=== PATIENT | male | born 1945 | race African-American/Black ===

== ENCOUNTER 2016-12-16 17:00 | Inpatient (IN) ==
[2016-12-16] MEDS ORDERED: BISACODYL 5 MG TABLET PO PRN (17:38)
[2016-12-16] MEDS ORDERED: ONDANSETRON 4 MG/2 ML VIAL IV PRN (17:38)
[2016-12-16] MEDS ORDERED: ACETAMINOPHEN 325 MG TABLET PO PRN (17:38)
--- NOTE | 2016-12-16 17:38 | Emergency Department Note ---
INoemy Sierra, am scribing for, and in the presence of, Mike Nelson MD 17:27. Omar Belle Robert M, MD, personally performed the services described in this documentation, ascribed by Emma Salguero in my presence, and it is both accurate and complete [id number] . Arrival - Arrival Chief Complaint: Weakness Stated Complaint: weakness ED Nursing Triage Note: Transfer from [place] ER for further evaluation of generalized weakness onset . Also c/o edema to bilateral legs and left hand. Reports unable to stand since yesterday. Denies pain. Mode of Arrival: Stretcher Limitations: No Limitations Source: Patient, Family - History of Present Illness HPI Narrative: Pt is a 71 y/o male that was transferred from [place] ED for further evaluation of bilateral hand and leg swelling that began 5 days ago. Pt denies taking fluid pills or pain. He states he had similar sxs about 6 months ago. states she had to put him in a wheelchair 2 days ago due to swelling so bad. 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 Pt's PCP is Dr. Antonio. No other complaints/pain in ED. Onset (ago): day(s) Consistency: constant Severity: mild, moderate Severity scale (1-10): 3 Quality: other Allergies/Adverse Reactions: Allergies Allergy/AdvReac Type Severity Reaction Status Date / Time No Known Allergies Allergy Unverified 12/16/16 17:05 Home Medications: Home Medications Medication Instructions Recorded Confirmed Type Losartan/Hydrochlorothiazide 1 each PO DAILY 08/31/16 10/11/16 History [Hyzaar 100-25 Tablet] Metoprolol Succinate Xl [Toprol Xl] 100 mg PO DAILY 08/31/16 10/11/16 History Allopurinol 100 mg PO BID 09/09/16 10/11/16 History hydrALAZINE TAB [Apresoline Tab] 50 mg PO TID 09/09/16 10/11/16 History Glyburide/Metformin HCl 1.5 each PO BID 09/23/16 10/11/16 History [Glyburide-Metformin 5-500 mg] amLODIPine [Norvasc] 10 mg PO DAILY 09/30/16 10/11/16 History Pantoprazole Tab [Protonix Tab] 40 mg PO BID 10/08/16 10/11/16 History HYDROcodone/ACETAMIN 7.5-325 1 tablet PO Q4H PRN #0 tablet 10/11/16 10/11/16 Rx [[place] 7.5-325] HYDROcodone/ACETAMIN 7.5-325 2 tablet PO Q4H PRN #0 tablet 10/11/16 10/11/16 Rx [[place] 7.5-325] Insulin Lispro [HumaLOG] See Protocol SUBCUT ACHS ml 10/11/16 10/11/16 Rx Acetaminophen Tab [Tylenol Tab] 650 mg PO Q4H PRN #0 tablet 10/23/16 Rx Alum/Mag/Simeth Max Str Liquid 30 ml PO Q6H PRN #0 udcup 10/23/16 Rx [Mylanta Max Strength Liquid] Magnesium Hydroxide Susp [Milk of 30 ml PO BID PRN #0 udcup 10/23/16 Rx Magnesia] Review of System - Review of System 12 point system: reviewed and no additional remarkable complaints except as stated - Review of System Constitutional: Absent: fever Head/Ears/Nose/Throat: Absent: earache Respiratory: Absent: cough Cardiovascular: Absent: chest pain Gastrointestinal: Absent: abdominal pain, nausea, vomiting Musculoskeletal: Present: other (bilateral leg and hand swelling). Absent: arm pain, back pain, leg pain, neck pain Skin: Absent: rash Neurological: Absent: headache, numbness, confusion Psychiatric: Absent: anxiety Medical,Surgical,& Family Hx - Medical History Cardio: History of: CAD (previous stent), Hypertension No history of: Aneurysm, Cardiac Dysrhythmia, Cerebrovascular Disease, Congenital Heart Disease, CHF, [place], Pacemaker, PVD, Valvular Heart Disease Neurology: No history of: Brain Aneurysm, Cerebral Hemorrhage, Cerebrovascular Accident , Cerebral Palsy, Dementia, Migraine, Multiple Sclerosis, Parkinson's Disease, Peripheral Neuropathy, Seizures, TIA, Vertigo, Neurologocal Cancer HEENT: History of: Eye Problem (READING GLASSES), Dental Problems (PARTIAL UPPER ) No history of: Ear Problem, Glaucoma, Oral Cancer, HEENT Problems Endocrine: History of: Diabetes Mellitus (NIDDM), Dyslipidemia No history of: Adrenal Disease, Diabetes Mellitus (IDDM), Thyroid Disorder, Endocrine Cancer, Endocrine Problems Rheumatology: History of;: Gout, Rheumatoid Arthritis No history of;: Fibromyalgia, Myasthenia Gravis Gastrointestinal: History of: GERD, GI Problems (gastric ulcer) No history of: Bowel Obstruction, Clostridium Difficile, Crohn's Disease, Diverticulitis/ Diverticulosis, Esophageal Varices, Gastrointestinal Bleed, Hemorrhoids, Hematochezia, Hepatitis, Liver Problems, Pancreatitis, Polyps, Ulcerative Colitis, Gastrointestinal Cancer Musculoskeletal: History of: Musculoskeletal Problems (LEFT HIP OA) No history of: Amputation, Back/Neck Problems, Degenerative Disk Disease, Osteoporosis, Musculoskeletal Cancer Other: History of: Miscellaneous Medical Problems (gout, polyclonal gammopathy stable at present.) - Surgical History Cardiac Surgeries: Sugical HX of: Cardiac Catheterization Patient Denies: Femoral-Popliteal Bypass Graft, Cardiac Surgery, Carotid Endarterectomy, Internal Defibrillator, Vascular Access Devices Neurologic Surgeries: Patient denies: Brain Aneurysm, Cerebral Hemorrhage, Neurologic Surgery HEENT Surgeries: Patient denies: Carotid Endarterectomy, Eye Surgery, Tonsilectomy & Adenoidectomy Abdominal Surgeries: Surgical HX of: EGD Patient denies: Abdominal Surgery, Appendectomy, Cholecystectomy, Colonoscopy , Gastric Bypass Surgery, Hernia Repair, Splenectomy Orthopedic Surgeries: Surgical HX of;: Total Hip Replacement (Lt 10/2016) Patient denies;: Implanted Devices, Orthopedic Surgery, Spinal Surgery, Total Knee Replacement - Family History Family History: Reports;: Family Cancer (FATHER), Family Hypertension (MOTHER) - Social History Smoking Status: Never smoker Frequency of Alcohol Use: None Type of Drug Use: None Exam Vital Signs: Vital Signs Temperature 98.2 F 12/16/16 17:00 Pulse Rate 123 H 12/16/16 17:00 Respiratory Rate 20 12/16/16 17:00 Blood Pressure 146/86 12/16/16 17:00 O2 Sat by Pulse Oximetry 96 12/16/16 17:00 - General General appearance: alert, in no apparent distress - Head Head exam: Present: atraumatic, normocephalic - Eye Eye exam: Present: PERRL, EOMI - ENT ENT exam: Present: mucous membranes moist. Absent: mucous membranes dry - Neck Neck exam: Present: full ROM. Absent: tenderness - Chest Chest inspection: Present: symmetric chest wall rise. Absent: tenderness - Respiratory Respiratory exam: Present: normal lung sounds bilaterally. Absent: respiratory distress - Cardiovascular Cardiovascular exam: Present: regular rate, normal rhythm, normal heart sounds - Abdominal Exam Abdominal exam: Present: soft. Absent: tenderness - Extremities Exam Extremities exam: Present: full ROM, other (diffusely edematous of hands and legs) - Back Exam Back exam: Present: full ROM. Absent: tenderness - Neurological Exam Neurological exam: Present: alert, oriented X3, CN II-XII intact, normal gait. Absent: motor sensory deficit - Psychiatric Psychiatric exam: Present: normal affect, normal mood - Skin Skin exam: Present: warm, dry Course - Consultations Consultation #1: Dr. Papito Alfaro will admit to Dr. Antonio. Time: 17:36 Results - Labs Lab Results: I have reviewed the patients labs (labs from [facility] were reviewed.) Disposition Clinical Impression: Weakness, Anasarca, Anemia Case discussed with: patient, patient's family Disposition: Still a Patient Condition: Stable Time of Disposition: 17:38
[2016-12-16] MEDS: DOCUSATE SODIUM 100 MG CAPSULE PO SCH (22:14)
[2016-12-16 23:25] LABS: Apearance,Urine CLEAR (Clear); Bilirubin,Urine Negative (Negative); Blood, Urine Moderate mg/dL (Negative); Glucose,Urine (UA) Negative (Negative); Hyaline Casts,Urine 1 /LPF (0-3); Ketones,Urine Negative (Negative); Mucus,Urine Occasional /LPF (Occasional); Nitrite,Urine Negative (Negative); Protein,Urine 30 MG/DL; RBC,Urine 1 /HPF (0-4); Squamous Epithelial Cell,Urine Occasional /HPF (0-10); Urine Color Yellow (Yellow); Urine Specific Gravity 1.013 (1.001-1.035); WBC,Urine <1 /HPF (0-6)
[2016-12-16] MEDS: cefTRIAXone 1,000 MG in SODIUM CHLORIDE 0.9% 100 ML IV SCH (23:32)
[2016-12-17 06:52] LABS: Calcium 9.8 MG/DL (8.5-10.1); Osmolality,Calculated 283.7 MOS/KG (273-304); Potassium 4.6 MMOL/L (3.5-5.1)
[2016-12-17] MEDS ORDERED: ALUMINUM/MAGNES/SIMETH MAX STR 30 ML UDCUP PO PRN (08:14)
[2016-12-17] MEDS ORDERED: MAGNESIUM HYDROXIDE SUSP 30 ML UDCUP PO PRN (08:14)
[2016-12-17] MEDS: LOSARTAN/HCTZ 50-12.5 MG TABLET PO SCH (09:52)
[2016-12-17] MEDS: glyBURIDE/METFORMIN 5-500 MG TABLET PO SCH ×2 (09:52→17:09)
[2016-12-17] MEDS: PANTOPRAZOLE 40 MG TABLET PO SCH (09:53)
[2016-12-17] MEDS: FUROSEMIDE 40 MG/4 ML VIAL IV SCH ×2 (09:53→15:53)
[2016-12-17] MEDS: METOPROLOL SUCCINATE XL 100 MG TABLET PO SCH (09:53)
[2016-12-17] MEDS: DOCUSATE SODIUM 100 MG CAPSULE PO SCH ×2 (09:53→22:22)
[2016-12-17] MEDS: methylPREDNISolone SOD SUC 40 MG/1 ML VIAL IV SCH ×2 (09:54→17:10)
[2016-12-17] MEDS: INSULIN LISPRO 100 UNIT/ML SUBCUT SCH ×3 (11:44→22:22)
[2016-12-17] MEDS: amLODIPine 10 MG TABLET PO SCH (11:44)
--- NOTE | 2016-12-17 19:44 | Family Practice History&Phys ---
Assessment and Plan (1) severe joint pain Status: Acute Assessment and plan: Patient has severe joint pain of unknown etiology. Unable to ambulate or bear weight at present Current Visit: Yes (2) diffuse joint pain and swelling Status: Acute Assessment and plan: Patient is presently unable to ambulate due to joint pain. He has severe pain in multiple joints bilaterally. Had a similar episode reportedly 6 months ago resolved with time. He doesn't have any localized pain and swelling. Symptoms Came on suddenly. We'll order additional studies Current Visit: Yes (3) coronary artery disease with stent Status: Chronic Assessment and plan: Stable at present Current Visit: No (4) gastroesophageal reflux Status: Chronic Assessment and plan: Stable at present Current Visit: No (5) hyperlipidemia Status: Chronic Assessment and plan: Able to present Current Visit: No (6) hypertension Status: Chronic Assessment and plan: Stable on present medications Current Visit: No (7) type 2 diabetes mellitus Status: Chronic Assessment and plan: Stable on present medications Current Visit: No History of Present Illness Chief complaint: severe joint pain weakness History of present illness: Mr. Nunez is a 71 year old male Pt is a 71 y/o male that was transferred from [place] ED for further evaluation of bilateral hand and leg swelling that began 5 days ago. Pt denies taking fluid pills or pain. He states he had similar sxs about 6 months ago. states she had to put him in a wheelchair 2 days ago due to swelling so bad. 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 Patient is unable to ambulate at time of admission. Complaining of severe joint pain in hips knees and wrists. In view of degree of symptoms it was elected to admit for further evaluation therapy Home Medications Medication Instructions Recorded Confirmed Type Losartan/Hydrochlorothiazide 1 each PO DAILY 08/31/16 12/16/16 History [Hyzaar 100-25 Tablet] Metoprolol Succinate Xl [Toprol Xl] 100 mg PO DAILY 08/31/16 12/16/16 History Allopurinol 100 mg PO BID 09/09/16 12/16/16 History hydrALAZINE TAB [Apresoline Tab] 50 mg PO TID 09/09/16 12/16/16 History Glyburide/Metformin HCl 1.5 each PO BID 09/23/16 12/16/16 History [Glyburide-Metformin 5-500 mg] amLODIPine [Norvasc] 10 mg PO DAILY 09/30/16 12/16/16 History Pantoprazole Tab [Protonix Tab] 40 mg PO BID 10/08/16 12/16/16 History Acetaminophen Tab [Tylenol Tab] 650 mg PO Q4H PRN #0 tablet 10/23/16 12/16/16 Rx Alum/Mag/Simeth Max Str Liquid 30 ml PO Q6H PRN #0 udcup 10/23/16 12/16/16 Rx [Mylanta Max Strength Liquid] Magnesium Hydroxide Susp [Milk of 30 ml PO BID PRN #0 udcup 10/23/16 12/16/16 Rx Magnesia] Allergies Allergy/AdvReac Type Severity Reaction Status Date / Time No Known Allergies Allergy Unverified 12/16/16 17:05 Medical,Surgical,& Family Hx - Medical History Cardio: History of: CAD (previous stent), Hypertension No history of: Aneurysm, Cardiac Dysrhythmia, Cerebrovascular Disease, Congenital Heart Disease, CHF, [place], Pacemaker, PVD, Valvular Heart Disease Neurology: No history of: Brain Aneurysm, Cerebral Hemorrhage, Cerebrovascular Accident , Cerebral Palsy, Dementia, Migraine, Multiple Sclerosis, Parkinson's Disease, Peripheral Neuropathy, Seizures, TIA, Vertigo, Neurologocal Cancer HEENT: History of: Eye Problem (READING GLASSES), Dental Problems (PARTIAL UPPER ) No history of: Ear Problem, Glaucoma, Oral Cancer, HEENT Problems Endocrine: History of: Diabetes Mellitus (NIDDM), Dyslipidemia No history of: Adrenal Disease, Diabetes Mellitus (IDDM), Thyroid Disorder, Endocrine Cancer, Endocrine Problems Rheumatology: History of;: Gout, Rheumatoid Arthritis No history of;: Fibromyalgia, Myasthenia Gravis Gastrointestinal: History of: GERD, GI Problems (gastric ulcer) No history of: Bowel Obstruction, Clostridium Difficile, Crohn's Disease, Diverticulitis/ Diverticulosis, Esophageal Varices, Gastrointestinal Bleed, Hemorrhoids, Hematochezia, Hepatitis, Liver Problems, Pancreatitis, Polyps, Ulcerative Colitis, Gastrointestinal Cancer Musculoskeletal: History of: Musculoskeletal Problems (LEFT HIP OA) No history of: Amputation, Back/Neck Problems, Degenerative Disk Disease, Osteoporosis, Musculoskeletal Cancer Other: History of: Miscellaneous Medical Problems (gout, polyclonal gammopathy stable at present.) - Surgical History Cardiac Surgeries: Sugical HX of: Cardiac Catheterization (stints) Patient Denies: Femoral-Popliteal Bypass Graft, Cardiac Surgery, Carotid Endarterectomy, Internal Defibrillator, Vascular Access Devices Thoracic Surgeries: Patient denies;: Organ Transplant, Lobectomy Neurologic Surgeries: Patient denies: Brain Aneurysm, Cerebral Hemorrhage, Neurologic Surgery HEENT Surgeries: Patient denies: Carotid Endarterectomy, Eye Surgery, Thyroid Surgery, Tonsilectomy & Adenoidectomy Abdominal Surgeries: Surgical HX of: EGD Patient denies: Abdominal Surgery, Appendectomy, Cholecystectomy, Colonoscopy , Gastric Bypass Surgery, Hernia Repair, Splenectomy Reproductive Surgeries: Patient denies;: Genitourinary Surgery Orthopedic Surgeries: Surgical HX of;: Total Hip Replacement (Lt 10/2016) Patient denies;: Implanted Devices, Orthopedic Surgery, Spinal Surgery, Total Knee Replacement - Family History Family History: Reports;: Family Cancer (FATHER), Family Hypertension (MOTHER) - Social History Smoking Status: Never smoker Frequency of Alcohol Use: None Type of Drug Use: None Marital Status: Lives With:: Spouse Functional capacity: independent ambulation Exam - Constitutional Vitals: Period Temp Pulse Resp BP Sys/Charles Pulse Ox Last 24 Hr 96.7 F-101.5 F 104-127 16-22 128-161/65-86 90-127 General appearance: mild distress - Head Head exam: Present: normal inspection - ENT ENT exam: Present: normal exam - Neck Neck exam: Present: normal inspection - Respiratory Respiratory exam: Present: clear to auscultation bilaterally - Cardiovascular Cardiovascular exam: Present: regular rate and rhythm - GI/Abdominal GI/Abdominal exam: Present: normal bowel sounds, soft - Extremities Exam Extremities exam: Present: other (range of motion in joints. Patient has tenderness on palpation of hips and knees. No swelling erythema or effusion.. He has diffuse. He has diffuse swelling over the dorsum of hands and wrists bilaterally Pain over wrist and dorsum of hands bilaterally) - Back Exam Back exam: Present: normal inspection - Neurological Exam Neurological exam: Present: alert, oriented X3 - Psychiatric Psychiatric exam: Present: normal affect - Skin Skin exam: Present: normal color Results - Labs CBC & BMP: 12/17/16 05:49 Quality Measures - Stroke Symptom Onset Unknown: No
[2016-12-17] MEDS: cefTRIAXone 1,000 MG in SODIUM CHLORIDE 0.9% 100 ML IV SCH (22:23)
[2016-12-18] MEDS: methylPREDNISolone SOD SUC 40 MG/1 ML VIAL IV SCH ×3 (01:12→16:09)
[2016-12-18 06:55] LABS: Basophils % 0.2 % (0.0-0.8); Hematocrit 30.8 VOL% (42.0-52.0); Hemoglobin 9.8 GM/DL (14.0-18.0); Immature Granulocytes Absolute 0.13 #; Lymphocytes # 1.7 10*3/uL (1.4-4.0); Lymphocytes % 13.1 % (21.2-54.2); Mean Corpuscular HGB Conc 31.8 GM/DL (32-36); Mean Corpuscular Hemoglobin 28 PG (27-34); Mean Corpuscular Volume 89.3 FL (87-102); Mean Platelet Volume 10.2 FL (9.6-12.0); Monocytes # 0.5 10*3/uL (0.11-0.8); Monocytes % 3.9 % (1.7-12.7); Neutrophils # 10.6 10*3/uL (1.4-7.4); Neutrophils % 81.8 % (38.7-73.9); Platelet Count 476 10*3/uL (130-400); Red Blood Count 3.45 10*6/uL (3.8-5.5); Red Cell Distribution Width 15.2 % (9.3-17.3); White Blood Count 12.9 10*3/uL (4.5-13.71)
[2016-12-18 07:39] LABS: Rheumatoid Factor < 15 IU/ML (<15)
[2016-12-18 07:43] LABS: Calcium 9.5 MG/DL (8.5-10.1); Magnesium 2.2 MG/DL (1.8-2.4); Osmolality,Calculated 299.7 MOS/KG (273-304); Potassium 4.8 MMOL/L (3.5-5.1); Thyroid Stimulating Hormone 0.634 uIU/ml (0.358-3.74); Uric Acid 8.4 MG/DL (3.5-7.2)
[2016-12-18 07:52] LABS: Amorphous Crystals,Urine Occasional /HPF (Few); Apearance,Urine CLEAR (Clear); Bilirubin,Urine Negative (Negative); Blood, Urine Negative (Negative); Glucose,Urine (UA) Negative (Negative); Hyaline Casts,Urine 3 /LPF (0-3); Ketones,Urine Negative (Negative); Mucus,Urine Occasional /LPF (Occasional); Nitrite,Urine Negative (Negative); Protein,Urine Negative; RBC,Urine 1 /HPF (0-4); Squamous Epithelial Cell,Urine Occasional /HPF (0-10); Urine Color Yellow (Yellow); Urine Specific Gravity 1.015 (1.001-1.035); Urine Urobilinogen < 2.0 EU/DL (0.2-1.0); WBC,Urine <1 /HPF (0-6)
--- NOTE | 2016-12-18 08:10 | Family Practice Progress Note ---
Family Practice - PN: Subj Interval history: Patient states she feels some better today. Still having significant joint pain. Was able to sit in the chair for a time yesterday but still having significant pain with ambulation. sedimentation rate was elevated at 86 and C- reactive protein was significantly elevated at 26.1.. His uric acid is slightly elevated at 8.6 but his history is not compatible with hyperuricemia and I would not expect a minimal elevation to cause symptoms that he's having. Multiple studies are pending at present. Still has diffuse joint pain with some swelling over the dorsum of wrist and hands bilaterally. Exam (Progress Note) - Constitutional Vitals: Period Temp Pulse Resp BP Sys/Charles Pulse Ox Last 24 Hr 97.1 F-99.2 F 92-108 20-22 116-152/62-89 94-100 General appearance: mild distress - ENT ENT exam: Present: normal exam - Respiratory Respiratory exam: Present: clear to auscultation bilaterally - Cardiovascular Cardiovascular exam: Present: regular rate and rhythm - GI/Abdominal GI/Abdominal exam: Present: normal bowel sounds - Extremities Exam Extremities exam: Present: other (as noted above) Results - Labs CBC & BMP: 12/18/16 05:29 12/18/16 05:29 Assessment and Plan (1) severe joint pain Status: Acute Assessment and plan: Patient has severe joint pain of unknown etiology. Unable to ambulate or bear weight at present Current Visit: Yes (2) diffuse joint pain and swelling Status: Acute Assessment and plan: Patient is presently unable to ambulate due to joint pain. He has severe pain in multiple joints bilaterally. Had a similar episode reportedly 6 months ago resolved with time. He doesn't have any localized pain and swelling. Symptoms Came on suddenly. We'll order additional studies Current Visit: Yes (3) coronary artery disease with stent Status: Chronic Assessment and plan: Stable at present Current Visit: No (4) gastroesophageal reflux Status: Chronic Assessment and plan: Stable at present Current Visit: No (5) hyperlipidemia Status: Chronic Assessment and plan: Able to present Current Visit: No (6) hypertension Status: Chronic Assessment and plan: Stable on present medications Current Visit: No (7) type 2 diabetes mellitus Status: Chronic Assessment and plan: Stable on present medications Current Visit: No Quality Measures - Stroke Symptom Onset Unknown: No
[2016-12-18] MEDS: PANTOPRAZOLE 40 MG TABLET PO SCH (09:11)
[2016-12-18] MEDS: DOCUSATE SODIUM 100 MG CAPSULE PO SCH ×2 (09:11→22:06)
[2016-12-18] MEDS: amLODIPine 10 MG TABLET PO SCH (09:11)
[2016-12-18] MEDS: METOPROLOL SUCCINATE XL 100 MG TABLET PO SCH (09:11)
[2016-12-18] MEDS: glyBURIDE/METFORMIN 5-500 MG TABLET PO SCH ×2 (09:11→16:09)
[2016-12-18] MEDS: LOSARTAN/HCTZ 50-12.5 MG TABLET PO SCH (09:11)
[2016-12-18] MEDS: FUROSEMIDE 40 MG/4 ML VIAL IV SCH ×2 (09:11→16:09)
[2016-12-18] MEDS: INSULIN LISPRO 100 UNIT/ML SUBCUT SCH ×4 (09:12→22:06)
[2016-12-18] MEDS: cefTRIAXone 1,000 MG in SODIUM CHLORIDE 0.9% 100 ML IV SCH (22:12)
[2016-12-19] MEDS: methylPREDNISolone SOD SUC 40 MG/1 ML VIAL IV SCH ×3 (00:45→16:52)
[2016-12-19 05:12] LABS: Basophils % 0.1 % (0.0-0.8); Hematocrit 29.4 VOL% (42.0-52.0); Hemoglobin 9.5 GM/DL (14.0-18.0); Immature Granulocytes % 1.4 %; Lymphocytes # 1.4 10*3/uL (1.4-4.0); Lymphocytes % 9.8 % (21.2-54.2); Mean Corpuscular HGB Conc 32.3 GM/DL (32-36); Mean Corpuscular Hemoglobin 28 PG (27-34); Mean Corpuscular Volume 87.5 FL (87-102); Mean Platelet Volume 10.1 FL (9.6-12.0); Monocytes # 0.5 10*3/uL (0.11-0.8); Monocytes % 3.5 % (1.7-12.7); Neutrophils # 12.6 10*3/uL (1.4-7.4); Neutrophils % 85.2 % (38.7-73.9); Platelet Count 534 10*3/uL (130-400); Red Blood Count 3.36 10*6/uL (3.8-5.5); Red Cell Distribution Width 15.3 % (9.3-17.3); White Blood Count 14.8 10*3/uL (4.5-13.71)
[2016-12-19 05:48] LABS: Calcium 9.4 MG/DL (8.5-10.1); Osmolality,Calculated 311.4 MOS/KG (273-304); Potassium 4.4 MMOL/L (3.5-5.1)
[2016-12-19] MEDS: FUROSEMIDE 40 MG/4 ML VIAL IV SCH (09:38)
[2016-12-19] MEDS: glyBURIDE/METFORMIN 5-500 MG TABLET PO SCH ×2 (09:39→16:52)
[2016-12-19] MEDS: METOPROLOL SUCCINATE XL 100 MG TABLET PO SCH (09:39)
[2016-12-19] MEDS: PANTOPRAZOLE 40 MG TABLET PO SCH (09:39)
[2016-12-19] MEDS: LOSARTAN/HCTZ 50-12.5 MG TABLET PO SCH (09:39)
[2016-12-19] MEDS: DOCUSATE SODIUM 100 MG CAPSULE PO SCH ×2 (09:39→20:36)
[2016-12-19] MEDS: amLODIPine 10 MG TABLET PO SCH (09:39)
[2016-12-19] MEDS: INSULIN LISPRO 100 UNIT/ML SUBCUT SCH ×4 (09:40→21:19)
--- NOTE | 2016-12-19 18:04 | Family Practice Progress Note ---
Family Practice - PN: Subj Interval history: Patient states that he continues to improve. Still having difficulty ambulating because of pain. Joint pain and swelling has definitely improved from yesterday but is still present. Sedimentation rate and C-reactive protein are better today. Rheumatoid factor and a GEOFF negative. His creatinine is increased at 2.1. Emergency room physician started patient on IV Lasix and this is probably causing the elevation. Blood sugars are elevated secondary to steroids. Will modify medications and increase activity today. If patient improve we will plan discharge in a.m. Exam (Progress Note) - Constitutional Vitals: Period Temp Pulse Resp BP Sys/Charles Pulse Ox Last 24 Hr 97.4 F-98.0 F 74-78 18-20 107-141/53-72 95-99 Results - Labs CBC & BMP: 12/19/16 04:51 12/19/16 04:51 Assessment and Plan (1) severe joint pain Status: Acute Assessment and plan: Patient has severe joint pain of unknown etiology. Unable to ambulate or bear weight at present Current Visit: Yes (2) diffuse joint pain and swelling Status: Acute Assessment and plan: Patient is presently unable to ambulate due to joint pain. He has severe pain in multiple joints bilaterally. Had a similar episode reportedly 6 months ago resolved with time. He doesn't have any localized pain and swelling. Symptoms Came on suddenly. We'll order additional studies Current Visit: Yes (3) coronary artery disease with stent Status: Chronic Assessment and plan: Stable at present Current Visit: No (4) gastroesophageal reflux Status: Chronic Assessment and plan: Stable at present Current Visit: No (5) hyperlipidemia Status: Chronic Assessment and plan: Able to present Current Visit: No (6) hypertension Status: Chronic Assessment and plan: Stable on present medications Current Visit: No (7) type 2 diabetes mellitus Status: Chronic Assessment and plan: Stable on present medications Current Visit: No Quality Measures - Stroke Symptom Onset Unknown: No
[2016-12-19] MEDS: cefTRIAXone 1,000 MG in SODIUM CHLORIDE 0.9% 100 ML IV SCH (20:36)
[2016-12-20] MEDS: methylPREDNISolone SOD SUC 40 MG/1 ML VIAL IV SCH ×2 (00:49→08:16)
[2016-12-20 06:18] LABS: Basophils % 0.1 % (0.0-0.8); Hematocrit 31.3 VOL% (42.0-52.0); Hemoglobin 9.9 GM/DL (14.0-18.0); Immature Granulocytes % 1.2 %; Immature Granulocytes Absolute 0.18 #; Lymphocytes # 1.6 10*3/uL (1.4-4.0); Lymphocytes % 10.6 % (21.2-54.2); Mean Corpuscular HGB Conc 31.6 GM/DL (32-36); Mean Corpuscular Hemoglobin 28 PG (27-34); Mean Corpuscular Volume 88.9 FL (87-102); Monocytes # 0.6 10*3/uL (0.11-0.8); Monocytes % 3.9 % (1.7-12.7); Neutrophils # 12.3 10*3/uL (1.4-7.4); Neutrophils % 84.2 % (38.7-73.9); Platelet Count 594 10*3/uL (130-400); Red Blood Count 3.52 10*6/uL (3.8-5.5); Red Cell Distribution Width 15.4 % (9.3-17.3); White Blood Count 14.6 10*3/uL (4.5-13.71)
[2016-12-20 06:55] LABS: Calcium 9.1 MG/DL (8.5-10.1); Potassium 4.7 MMOL/L (3.5-5.1)
[2016-12-20] MEDS: LOSARTAN/HCTZ 50-12.5 MG TABLET PO SCH (08:14)
[2016-12-20] MEDS: METOPROLOL SUCCINATE XL 100 MG TABLET PO SCH (08:14)
[2016-12-20] MEDS: amLODIPine 10 MG TABLET PO SCH (08:14)
[2016-12-20] MEDS: glyBURIDE/METFORMIN 5-500 MG TABLET PO SCH (08:14)
[2016-12-20] MEDS: PANTOPRAZOLE 40 MG TABLET PO SCH (08:15)
[2016-12-20] MEDS: INSULIN LISPRO 100 UNIT/ML SUBCUT SCH (08:15)
[2016-12-20] MEDS: DOCUSATE SODIUM 100 MG CAPSULE PO SCH (08:15)
[2016-12-20 09:15] VITALS: BP 136/78
--- NOTE | 2016-12-20 12:57 | Discharge Summary ---
Hospital Course - Hospital Course Hospital Course: Mr. Nunez is a 71 year old male Pt is a 71 y/o male that was transferred from [facility] for further evaluation of bilateral hand and leg swelling that began 5 days ago. Pt denies taking fluid pills or pain. He states he had similar sxs about 6 months ago. states she had to put him in a wheelchair 2 days ago due to swelling so bad. 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 Patient is unable to ambulate at time of admission. Complaining of severe joint pain in hips knees and wrists. In view of degree of symptoms it was elected to admit for further evaluation therapy Hospital course -patient was admitted to hospital lab and x-ray studies were obtained. Patient was having severe joint pain at time of admission. He was unable to stand because of pain in hips and back. He was also complaining of pain in shoulders elbows and hands. Had diffuse tenderness and swelling across the dorsum of both hands and wrist. No joint effusions were noted. He was unable to bend his rest or use his hands at time of admission. The patient had a somewhat similar episode in the past but only lasted for short period of time. He denies chills fever cough or other related complaints. Has a history of hyperuricemia and is presently on allopurinol. His additional lab studies revealed a sedimentation rate of 86 with a C- reactive protein significantly elevated at 26. He is a lunate and RA were both negative. Cultures were obtained which were negative. Lab studies were unremarkable except for elevated blood sugar from his diabetes. He was treated with a sliding scale during hospitalization and his blood sugars remained elevated because of the steroids. Patient was started on IV Solu-Medrol which provided rapid improvement in his symptoms. It has taken the last several days to reduce the joint pain to the level where patient is able to ambulate without assistance. No specific etiology has been found. Uric acid was slightly elevated 8.4 but this is generally not high enough that I would expect to cause the symptoms that he's having. He is generally much improved at time of discharge. I will discharge patient to home care and plan to do further studies on an outpatient basis. May refer to rheumatology if needed. Advised patient to call clinic or return to emergency room if condition worsens or new problems develop. Diagnosis - Discharge Diagnosis (1) severe joint pain Status: Acute (2) diffuse joint pain and swelling Status: Acute (3) hyperuricemia Status: Acute (4) coronary artery disease with stent Status: Chronic (5) gastroesophageal reflux Status: Chronic (6) hyperlipidemia Status: Chronic (7) hypertension Status: Chronic (8) type 2 diabetes mellitus Status: Chronic Discharge Plan - Discharge Data Disposition: Disch To Home/Self Care Condition at Discharge: Stable Discharge Diet: diabetic diet Activity: resume usual activities as tolerated Hygiene: no restrictions Weight Bearing at Discharge: weight bear as tolerated Driving: no restrictions Contact your physician if you experience:: fever over 101, Shortness of breath - Discharge Medications New HYDROcodone/ACETAMIN 10-325 [[place] 10-325] 1 tablet PO Q6H PRN #30 tablet PRN Reason: Pain Moderate (4-7) predniSONE TAB [PredniSONE] 10 mg PO BID #20 tablet Continue Metoprolol Succinate Xl [Toprol Xl] 100 mg PO DAILY Losartan/Hydrochlorothiazide [Hyzaar 100-25 Tablet] 1 each PO DAILY Allopurinol 100 mg PO BID hydrALAZINE TAB [Apresoline Tab] 50 mg PO TID Glyburide/Metformin HCl [Glyburide-Metformin 5-500 mg] 1.5 each PO BID amLODIPine [Norvasc] 10 mg PO DAILY Pantoprazole Tab [Protonix Tab] 40 mg PO BID Acetaminophen Tab [Tylenol Tab] 650 mg PO Q4H PRN #0 tablet PRN Reason: Fever, Headache, Mild Pain Alum/Mag/Simeth Max Str Liquid [Mylanta Max Strength Liquid] 30 ml PO Q6H PRN #0 udcup PRN Reason: Dyspepsia Magnesium Hydroxide Susp [Milk of Magnesia] 30 ml PO BID PRN #0 udcup PRN Reason: Constipation - Follow Up or Referral Follow Up: Brady Antonio DO [Primary Care Provider] - 1 Week - Forms/Instructions Exam - Constitutional Vitals: Period Temp Pulse Resp BP Sys/Charles Pulse Ox Last 24 Hr 96.0 F-98.4 F 74-86 15-20 127-141/69-85 92-98 General appearance: no acute distress - Head Head exam: Present: normal inspection - ENT ENT exam: Present: normal exam - Neck Neck exam: Present: normal inspection - Respiratory Respiratory exam: Present: clear to auscultation bilaterally - Cardiovascular Cardiovascular exam: Present: regular rate and rhythm - GI/Abdominal GI/Abdominal exam: Present: normal bowel sounds, soft - Extremities Exam Extremities exam: Present: full ROM, edema (slight edema and ankles and feet.), other (has slight tenderness on palpation of lower back and hips and shoulders. No erythema or swelling or effusion noted. This is much improved overall) - Back Exam Back exam: Present: normal inspection - Neurological Exam Neurological exam: Present: alert, oriented X3 - Psychiatric Psychiatric exam: Present: normal affect, normal mood - Skin Skin exam: Present: normal color Discharge Results Procedures and tests throughout hospitalization: Pending Orders 12/16/16 23:24 Blood Culture Stat Labs on day of discharge: Labs from last 24 hours 12/20/16 12/20/16 12/20/16 10:58 07:33 05:40 WBC RBC Hgb Hct MCV MCH MCHC RDW Plt Count MPV Neut % (Auto) Lymph % (Auto) [place] % (Auto) Eos % (Auto) Baso % (Auto) Neut # (Auto) Lymph # (Auto) [place] # (Auto) Eos # (Auto) Baso # (Auto) Immature Gran % Nucleated RBC % Immature Gran # Nucleated RBCs # Sodium 143 Potassium 4.7 Chloride 104 Carbon Dioxide 27 Anion Gap 16.7 H BUN 74 H Creatinine 1.80 H GFR Calculation 59 BUN/Creatinine Ratio 41.00 H Glucose 182 H POC Glucose 227 H 192 H Calculated Osmolality 311.0 H Calcium 9.1 12/20/16 12/19/16 12/19/16 05:40 20:24 15:24 WBC 14.6 H RBC 3.52 L Hgb 9.9 L Hct 31.3 L MCV 88.9 MCH 28 MCHC 31.6 L RDW 15.4 Plt Count 594 H MPV 10.0 Neut % (Auto) 84.2 H Lymph % (Auto) 10.6 L [place] % (Auto) 3.9 Eos % (Auto) 0.0 Baso % (Auto) 0.1 Neut # (Auto) 12.3 H Lymph # (Auto) 1.6 [place] # (Auto) 0.6 Eos # (Auto) 0.0 Baso # (Auto) 0.0 Immature Gran % 1.2 Nucleated RBC % 0.0 Immature Gran # 0.18 Nucleated RBCs # 0.00 Sodium Potassium Chloride Carbon Dioxide Anion Gap BUN Creatinine GFR Calculation BUN/Creatinine Ratio Glucose POC Glucose 256 H 293 H Calculated Osmolality Calcium Preliminary micro results at discharge 12/16/16 23:24 Blood Culture - Preliminary Blood No growth at 3 days 12/16/16 23:24 Blood Culture - Preliminary Blood No growth at 3 days DS: Provider Date of admission: 12/16/16 17:38 Primary care physician: Brady Antonio DO Attending physician on admission: Brady Antonio DO Consults: 12/18/16 11:54 Consult to Physical Therapy [CONS] Routine Reason for Physical Therapy: Evaluate and Treat 12/18/16 18:42 Consult to Case Mgmt/Social Srvs [CONS] Routine Reason for Case Mgmt/Social Srvs: Equipment Consult Comment: PT recommended rolling walker on DC for home use Discharging clinician: Brady Antonio DO
[2016-12-20] MEDS ORDERED: predniSONE 10 MG TABLET PO SCH (13:30)
== END 2016-12-20 13:57 | disposition home or self-care (01) | DRG 556 ==
LOC: EDUNIT# → EDBD → N.ED 17:00 → N.EDINP 17:38 → N.2E 18:36
PROVIDERS: ADMIT Family Medicine; ATTEND Family Medicine

== ENCOUNTER 2021-01-24 06:12 | Inpatient (IN) ==
[2021-01-19 12:54] LABS: Basophils # 0.1 10*3/uL (0.0-0.2); Basophils % 0.7 % (0.0-0.8); Eosinophils # 0.7 10*3/uL (0.0-0.87); Eosinophils % 3.4 % (0.00-10.9); Hematocrit 31.3 VOL% (42.0-52.0); Immature Granulocytes % 0.9 %; Immature Granulocytes Absolute 0.18 #; Lymphocytes # 2.9 10*3/uL (1.4-4.0); Lymphocytes % 14.8 % (21.2-54.2); Mean Corpuscular HGB Conc 31.9 GM/DL (32-36); Mean Corpuscular Volume 89.2 FL (87-102); Mean Platelet Volume 9.5 FL (9.6-12.0); Monocytes % 11.2 % (1.7-12.7); Platelet Count 657 T/CUMM (130-400); Red Blood Count 3.51 MC/CUMM (3.8-5.5); Red Cell Distribution Width 15.8 % (9.3-17.3); White Blood Count 19.5 T/CUMM (4-12)
[2021-01-19 13:24] LABS: Calcium 9.2 MG/DL (8.5-10.1); Osmolality,Calculated 279.1 MOS/KG (273-304); Potassium 4.2 MMOL/L (3.5-5.1)
[~2021-01-24 06:12] MED LIST: ALVIMOPAN 12 MG CAPSULE PO ONE
[2021-01-24] MEDS ORDERED: cefOXitin 2,000 MG in SYRINGE 1 EACH IV ONE (06:30)
[2021-01-24] MEDS ORDERED: FAMOTIDINE 20 MG TABLET PO ONE (07:22)
[2021-01-24] MEDS ORDERED: LACTATED RINGERS 1,000 ML IV SCH (07:30)
[2021-01-24] MEDS ORDERED: ROCURONIUM 50 MG/5 ML VIAL IV ONE ×2 (08:17→11:02)
[2021-01-24] MEDS ORDERED: LIDOCAINE 2% 5 ML VIAL ONE (08:17)
[2021-01-24] MEDS ORDERED: fentaNYL 100 MCG/2 ML VIAL ONE (08:17)
[2021-01-24] MEDS ORDERED: MIDAZOLAM 2 MG/2 ML VIAL ONE (08:17)
[2021-01-24] MEDS ORDERED: propofoL 200 MG/20 ML VIAL IV ONE (08:17)
[2021-01-24] MEDS ORDERED: DEXAMETHASONE 4 MG/1 ML VIAL ONE (08:18)
[2021-01-24] MEDS ORDERED: ROPIVACAINE 0.5% 30 ML VIAL ONE (08:18)
[2021-01-24] MEDS ORDERED: EPINEPHrine 1 MG/ML VIAL ONE (08:18)
[2021-01-24] MEDS ORDERED: BUPIVACAINE MPF 0.25% 30 ML VIAL ONE ×2 (08:24→08:30)
[2021-01-24] MEDS ORDERED: SUCCINYLCHOLINE 200 MG/10 ML VIAL ONE (09:00)
[2021-01-24] MEDS ORDERED: ePHEDrine 50 MG/ML VIAL ONE (10:06)
[2021-01-24] MEDS ORDERED: SUGAMMADEX 200 MG/2 ML VIAL IV ONE (10:54)
[2021-01-24] MEDS ORDERED: SEVOFLURANE 1 UNIT/15 MINUTE INH ONE (11:00)
[2021-01-24] MEDS ORDERED: ACETAMINOPHEN 1,000 MG/100 ML VIAL IV ONE (11:01)
[2021-01-24] MEDS ORDERED: LACTATED RINGERS 2,000 ML IV ONE (11:01)
[2021-01-24] MEDS ORDERED: ONDANSETRON 4 MG/2 ML VIAL IV PRN ×2 (11:06→11:47)
[2021-01-24] MEDS ORDERED: MORPHINE 4 MG/1 ML VIAL IV PRN (11:06)
[2021-01-24] MEDS ORDERED: DEXTROSE 5% LACTATED RINGERS 1,000 ML IV SCH (11:30)
[2021-01-24] MEDS ORDERED: HYDROmorphone 2 MG/1 ML VIAL ONE (11:46)
[2021-01-24] MEDS: HYDROmorphone 2 MG/1 ML VIAL IV PRN ×2 (11:50→11:55)
[2021-01-24] MEDS: SODIUM CHLORIDE 0.9% 1,000 ML IV SCH (16:37)
[2021-01-24] MEDS: cefOXitin 2,000 MG in SYRINGE 1 EACH IV SCH ×2 (16:37→22:20)
[2021-01-24] MEDS: INSULIN REGULAR 100 UNIT/ML SUBCUT SCH ×2 (16:55→22:20)
[2021-01-25] MEDS: cefOXitin 2,000 MG in SYRINGE 1 EACH IV SCH (03:17)
[2021-01-25] MEDS: SODIUM CHLORIDE 0.9% 1,000 ML IV SCH ×4 (03:17→16:21)
[2021-01-25 06:51] LABS: Basophils # 0.1 10*3/uL (0.0-0.2); Basophils % 0.4 % (0.0-0.8); Eosinophils # 0.2 10*3/uL (0.0-0.87); Eosinophils % 1.5 % (0.00-10.9); Hematocrit 27.5 VOL% (42.0-52.0); Hemoglobin 9.1 GM/DL (14.0-18.0); Immature Granulocytes Absolute 0.16 #; Lymphocytes # 1.6 10*3/uL (1.4-4.0); Lymphocytes % 9.8 % (21.2-54.2); Mean Corpuscular HGB Conc 33.1 GM/DL (32-36); Mean Platelet Volume 9.1 FL (9.6-12.0); Monocytes % 9.2 % (1.7-12.7); Neutrophils % 78.1 % (38.7-73.9); Platelet Count 589 T/CUMM (130-400); Red Blood Count 3.16 MC/CUMM (3.8-5.5); Red Cell Distribution Width 15.7 % (9.3-17.3); White Blood Count 15.9 T/CUMM (4-12)
[2021-01-25] MEDS: ENOXAPARIN 40 MG/0.4 ML SYRINGE SUBCUT SCH (07:06)
[2021-01-25 07:24] LABS: Albumin 1.5 G/DL (3.4-5.0); Bilirubin,Total 0.5 MG/DL (0.2-1.0); Calcium 8.3 MG/DL (8.5-10.1); Osmolality,Calculated 280.5 MOS/KG (273-304); Potassium 3.4 MMOL/L (3.5-5.1); Total Protein 7.1 G/DL (6.4-8.3)
[2021-01-25] MEDS ORDERED: DIAZEPAM 5 MG TABLET PO ONE (07:55)
[2021-01-25] MEDS: INSULIN REGULAR 100 UNIT/ML SUBCUT SCH ×4 (08:07→22:28)
[2021-01-25 08:40] LABS: INR 1.2
[2021-01-25] MEDS: SODIUM CHLORIDE 0.45% 1,000 ML IV SCH (16:21)
[2021-01-26] MEDS: INSULIN REGULAR 100 UNIT/ML SUBCUT SCH ×4 (07:21→21:36)
[2021-01-26] MEDS: ENOXAPARIN 40 MG/0.4 ML SYRINGE SUBCUT SCH (07:24)
[2021-01-26] MEDS ORDERED: DIAZEPAM 5 MG TABLET PO ONE (08:00)
[2021-01-26] MEDS ORDERED: MIDAZOLAM 2 MG/2 ML VIAL IV ONE (08:30)
[2021-01-26] MEDS ORDERED: fentaNYL 100 MCG/2 ML VIAL IV ONE (08:30)
[2021-01-26] MEDS: SODIUM CHLORIDE 0.45% 1,000 ML IV SCH ×2 (11:10)
[2021-01-26] MEDS ORDERED: DEXTROSE 50% 25 GM/50 ML VIAL IV PRN (12:00)
[2021-01-26] MEDS ORDERED: GLUCAGON 1 MG VIAL IM PRN (12:00)
[2021-01-27] MEDS: ENOXAPARIN 40 MG/0.4 ML SYRINGE SUBCUT SCH (05:45)
[2021-01-27] MEDS: INSULIN REGULAR 100 UNIT/ML SUBCUT SCH ×4 (07:23→22:18)
[2021-01-27] MEDS: SODIUM CHLORIDE 0.45% 1,000 ML IV SCH ×2 (11:35→11:38)
[2021-01-27] MEDS: SODIUM CHLORIDE 0.9% 1,000 ML IV SCH ×3 (11:36→11:38)
[2021-01-28] MEDS: ENOXAPARIN 40 MG/0.4 ML SYRINGE SUBCUT SCH (05:57)
[2021-01-28 06:07] LABS: Basophils # 0.1 10*3/uL (0.0-0.2); Basophils % 0.5 % (0.0-0.8); Eosinophils # 0.6 10*3/uL (0.0-0.87); Hematocrit 27.2 VOL% (42.0-52.0); Hemoglobin 8.5 GM/DL (14.0-18.0); Immature Granulocytes % 1.5 %; Immature Granulocytes Absolute 0.31 #; Lymphocytes # 2.9 10*3/uL (1.4-4.0); Lymphocytes % 13.4 % (21.2-54.2); Mean Corpuscular HGB Conc 31.3 GM/DL (32-36); Mean Corpuscular Volume 90.4 FL (87-102); Mean Platelet Volume 8.9 FL (9.6-12.0); Monocytes % 12.1 % (1.7-12.7); Neutrophils % 69.5 % (38.7-73.9); Platelet Count 481 T/CUMM (130-400); Red Blood Count 3.01 MC/CUMM (3.8-5.5); Red Cell Distribution Width 16.5 % (9.3-17.3); White Blood Count 21.3 T/CUMM (4-12)
[2021-01-28 06:25] LABS: Calcium 8.5 MG/DL (8.5-10.1); Osmolality,Calculated 276.7 MOS/KG (273-304); Potassium 3.6 MMOL/L (3.5-5.1)
[2021-01-28 07:59] LABS: Eosinophils 3 % (0-10); Lymphocytes 12 % (20-55); Metamyelocytes 2 %; Segmented Neutrophils 70 % (50-85); Total Cells Counted 100
[2021-01-28 08:00] LABS: Hypochromasia 3+; Platelet Estimate Increased
[2021-01-28] MEDS: INSULIN REGULAR 100 UNIT/ML SUBCUT SCH ×4 (08:55→21:06)
[2021-01-28 10:54] LABS: Amorphous Crystals,Urine Few /HPF (Few); Bacteria,Urine Moderate /HPF (Few); Bilirubin,Urine Negative (Negative); Blood, Urine Large mg/dL (Negative); Glucose,Urine (UA) Negative (Negative); Ketones,Urine Negative (Negative); Mucus,Urine Occasional /LPF (Occasional); Nitrite,Urine Positive (Negative); Protein,Urine 30 MG/DL; RBC,Urine 149 /HPF (0-4); Squamous Epithelial Cell,Urine Occasional /HPF (0-10); Urine Appearance CLEAR (Clear); Urine Color Yellow (Yellow); Urine Urobilinogen < 2.0 EU/DL (0.2-1.0); WBC,Urine 22 /HPF (0-6)
[2021-01-28] MEDS: ACETAMINOPHEN 325 MG TABLET PO PRN (19:08)
[2021-01-29 04:37] LABS: Basophils # 0.1 10*3/uL (0.0-0.2); Basophils % 0.5 % (0.0-0.8); Eosinophils # 0.6 10*3/uL (0.0-0.87); Eosinophils % 2.8 % (0.00-10.9); Hematocrit 24.8 VOL% (42.0-52.0); Hemoglobin 8.3 GM/DL (14.0-18.0); Immature Granulocytes % 1.5 %; Immature Granulocytes Absolute 0.32 #; Lymphocytes # 2.7 10*3/uL (1.4-4.0); Lymphocytes % 12.6 % (21.2-54.2); Mean Corpuscular HGB Conc 33.5 GM/DL (32-36); Monocytes % 10.8 % (1.7-12.7); Neutrophils % 71.8 % (38.7-73.9); Platelet Count 470 T/CUMM (130-400); Red Blood Count 2.85 MC/CUMM (3.8-5.5); Red Cell Distribution Width 16.3 % (9.3-17.3)
[2021-01-29 05:02] LABS: Hypochromasia 1+; Microcytosis 1+
[2021-01-29 05:03] LABS: Platelet Estimate Increased
[2021-01-29] MEDS: ENOXAPARIN 40 MG/0.4 ML SYRINGE SUBCUT SCH (06:21)
[2021-01-29] MEDS: INSULIN REGULAR 100 UNIT/ML SUBCUT SCH ×4 (07:04→21:25)
[2021-01-29] MEDS ORDERED: SULFAMETHOX/TRIMETHOPRIM 400-80 MG TABLET PO SCH (09:00)
[2021-01-29] MEDS: SULFAMETHOX/TRIMETHOPRIM 800-160 MG TABLET PO SCH ×2 (10:10→21:01)
[2021-01-30] MEDS: ENOXAPARIN 40 MG/0.4 ML SYRINGE SUBCUT SCH (05:10)
[2021-01-30] MEDS: INSULIN REGULAR 100 UNIT/ML SUBCUT SCH ×4 (07:04→21:04)
[2021-01-30] MEDS: SULFAMETHOX/TRIMETHOPRIM 800-160 MG TABLET PO SCH ×2 (10:04→21:03)
[2021-01-31] MEDS: ENOXAPARIN 40 MG/0.4 ML SYRINGE SUBCUT SCH (06:15)
[2021-01-31 08:20] LABS: Basophils # 0.1 10*3/uL (0.0-0.2); Basophils % 0.6 % (0.0-0.8); Eosinophils # 0.4 10*3/uL (0.0-0.87); Eosinophils % 2.8 % (0.00-10.9); Hematocrit 25.2 VOL% (42.0-52.0); Hemoglobin 8.3 GM/DL (14.0-18.0); Immature Granulocytes % 1.3 %; Mean Corpuscular HGB Conc 32.9 GM/DL (32-36); Mean Corpuscular Volume 87.5 FL (87-102); Monocytes % 10.8 % (1.7-12.7); Neutrophils % 71.5 % (38.7-73.9); Platelet Count 522 T/CUMM (130-400); Red Blood Count 2.88 MC/CUMM (3.8-5.5); Red Cell Distribution Width 16.6 % (9.3-17.3); White Blood Count 15.6 T/CUMM (4-12)
[2021-01-31 08:37] LABS: Calcium 8.6 MG/DL (8.5-10.1); Osmolality,Calculated 274.8 MOS/KG (273-304); Potassium 3.9 MMOL/L (3.5-5.1)
[2021-01-31] MEDS: SULFAMETHOX/TRIMETHOPRIM 800-160 MG TABLET PO SCH ×2 (08:59→20:50)
[2021-01-31] MEDS: INSULIN REGULAR 100 UNIT/ML SUBCUT SCH ×4 (09:28→21:15)
[2021-01-31] MEDS: cefTRIAXone 1,000 MG in SYRINGE 1 EACH IV SCH (15:06)
[2021-01-31] MEDS: ACETAMINOPHEN 325 MG TABLET PO PRN (20:51)
[2021-02-01] MEDS: ENOXAPARIN 40 MG/0.4 ML SYRINGE SUBCUT SCH (04:59)
[2021-02-01] MEDS ORDERED: cefTRIAXone 1,000 MG in SYRINGE 1 EACH IV ONE (07:45)
[2021-02-01] MEDS: INSULIN REGULAR 100 UNIT/ML SUBCUT SCH ×4 (08:14→22:57)
[2021-02-01] MEDS: cefTRIAXone 1,000 MG in SYRINGE 1 EACH IV SCH (12:57)
[2021-02-01] MEDS: ACETAMINOPHEN 325 MG TABLET PO PRN (18:30)
[2021-02-02] MEDS: ENOXAPARIN 40 MG/0.4 ML SYRINGE SUBCUT SCH (05:21)
[2021-02-02] MEDS ORDERED: cefTRIAXone 1,000 MG in SYRINGE 1 EACH IV ONE (06:00)
[2021-02-02] MEDS: INSULIN REGULAR 100 UNIT/ML SUBCUT SCH ×4 (09:15→20:09)
[2021-02-02] MEDS ORDERED: LIDOCAINE 2% TOP JELLY 20 ML VIAL INTRAURETH ONE (10:27)
[2021-02-02] MEDS ORDERED: LACTATED RINGERS 1,000 ML IV SCH (11:00)
[2021-02-02] MEDS ORDERED: GLUCAGON 1 MG VIAL IM PRN (11:20)
[2021-02-02] MEDS ORDERED: DEXTROSE 50% 25 GM/50 ML VIAL IV PRN (11:20)
[2021-02-02] MEDS: cefTRIAXone 1,000 MG in SYRINGE 1 EACH IV SCH (15:04)
[2021-02-02] MEDS: METOPROLOL SUCCINATE XL 100 MG TABLET PO SCH (15:09)
[2021-02-02] MEDS: amLODIPine 10 MG TABLET PO SCH (15:09)
[2021-02-02] MEDS: hydroCHLOROthiazide 12.5 MG CAPSULE PO SCH (15:09)
[2021-02-03] MEDS: ENOXAPARIN 40 MG/0.4 ML SYRINGE SUBCUT SCH (04:45)
[2021-02-03] MEDS: INSULIN REGULAR 100 UNIT/ML SUBCUT SCH ×3 (09:09→15:56)
[2021-02-03] MEDS: hydroCHLOROthiazide 12.5 MG CAPSULE PO SCH (09:28)
[2021-02-03] MEDS: amLODIPine 10 MG TABLET PO SCH (09:28)
[2021-02-03] MEDS: METOPROLOL SUCCINATE XL 100 MG TABLET PO SCH (09:28)
[2021-02-03] MEDS: cefTRIAXone 1,000 MG in SYRINGE 1 EACH IV SCH (12:17)
[2021-02-03 12:27] VITALS: BP 135/66
== END 2021-02-03 16:22 | disposition home health service (06) | DRG 330 ==
LOC: N.OR 06:12 → N.SDSINP 06:15 → EDSTATUS 10:00 → N.SDSINP 11:06 → N.3E 13:30
PROVIDERS: ADMIT Surgery; ATTEND Surgery

== ENCOUNTER 2021-03-04 11:33 | Inpatient (IN) ==
[2021-03-04 13:46] LABS: Basophils # 0.1 10*3/uL (0.0-0.2); Basophils % 0.2 % (0.0-0.8); Immature Granulocytes % 2.5 %; Lymphocytes # 1.7 10*3/uL (1.4-4.0); Lymphocytes % 4.3 % (21.2-54.2); Mean Corpuscular Volume 90.6 FL (87-102); Mean Platelet Volume 9.1 FL (9.6-12.0); Monocytes % 5.9 % (1.7-12.7); Neutrophils % 87.1 % (38.7-73.9); Platelet Count 643 T/CUMM (130-400); Red Blood Count 2.76 MC/CUMM (3.8-5.5); Red Cell Distribution Width 17.3 % (9.3-17.3); White Blood Count 39.7 T/CUMM (4-12)
[2021-03-04 14:04] LABS: Albumin 1.3 G/DL (3.4-5.0); Bilirubin,Total 0.5 MG/DL (0.2-1.0); Calcium 8.6 MG/DL (8.5-10.1); Osmolality,Calculated 286.2 MOS/KG (273-304); Potassium 4.5 MMOL/L (3.5-5.1); Total Protein 7.5 G/DL (6.4-8.2)
[2021-03-04 14:23] LABS: Lymphocytes 4 % (20-55); Segmented Neutrophils 90 % (50-85)
[2021-03-04 14:24] LABS: Anisocytosis Slight; Hypochromasia 1+; Macrocytosis 1+
[2021-03-04 14:25] LABS: Elliptocytes Few; Platelet Estimate Increased; Total Cells Counted 100
[2021-03-04] MEDS ORDERED: ACETAMINOPHEN 325 MG TABLET PO PRN (15:05)
[2021-03-04] MEDS ORDERED: ONDANSETRON 4 MG/2 ML VIAL IV PRN (15:05)
[2021-03-04] MEDS ORDERED: glyBURIDE 5 MG TABLET PO PRN (15:06)
[2021-03-04] MEDS: SODIUM CHLORIDE 0.9% 1,000 ML IV SCH (16:58)
[2021-03-04] MEDS: PIPERACILLIN/TAZOBACTAM 3,375 MG in SODIUM CHLORIDE 0.9% 100 ML IV SCH (18:26)
[2021-03-04] MEDS: INSULIN LISPRO 100 UNIT/ML SUBCUT SCH (19:55)
[2021-03-04] MEDS ORDERED: NABUMETONE 500 MG TABLET PO SCH (21:00)
[2021-03-04] MEDS: DOCUSATE SODIUM 100 MG CAPSULE PO SCH (21:30)
[2021-03-04] MEDS: allopurinoL 100 MG TABLET PO SCH (21:30)
[2021-03-05] MEDS: SODIUM CHLORIDE 0.9% 1,000 ML IV SCH ×3 (01:28→17:23)
[2021-03-05] MEDS: PIPERACILLIN/TAZOBACTAM 3,375 MG in SODIUM CHLORIDE 0.9% 100 ML IV SCH ×3 (02:41→19:11)
[2021-03-05 05:26] LABS: Hematocrit 22.1 VOL% (42.0-52.0)
[2021-03-05 05:31] LABS: Basophils # 0.1 10*3/uL (0.0-0.2); Basophils % 0.2 % (0.0-0.8); Eosinophils # 0.1 10*3/uL (0.0-0.87); Eosinophils % 0.1 % (0.00-10.9); Hemoglobin 7.4 GM/DL (14.0-18.0); Immature Granulocytes % 2.9 %; Immature Granulocytes Absolute 0.98 #; Lymphocytes # 1.7 10*3/uL (1.4-4.0); Lymphocytes % 4.9 % (21.2-54.2); Mean Corpuscular HGB Conc 33.5 GM/DL (32-36); Mean Corpuscular Volume 87.4 FL (87-102); Monocytes % 5.6 % (1.7-12.7); Neutrophils % 86.3 % (38.7-73.9); Platelet Count 538 T/CUMM (130-400); Red Blood Count 2.53 MC/CUMM (3.8-5.5); Red Cell Distribution Width 17.1 % (9.3-17.3); White Blood Count 33.9 T/CUMM (4-12)
[2021-03-05 05:46] LABS: Calcium 8.3 MG/DL (8.5-10.1); Osmolality,Calculated 283.8 MOS/KG (273-304); Potassium 3.8 MMOL/L (3.5-5.1)
[2021-03-05 06:05] LABS: Hypochromasia 2+; Lymphocytes 6 % (20-55); Platelet Estimate Increased; Segmented Neutrophils 91 % (50-85); Total Cells Counted 100
[2021-03-05 06:06] LABS: Microcytosis 1+; Ovalocytes Slight
[2021-03-05 06:50] LABS: Total Protein (Chem) 7.7 G/DL (6.4-8.3)
[2021-03-05] MEDS ORDERED: glyBURIDE 5 MG TABLET PO SCH (08:00)
[2021-03-05] MEDS ORDERED: SODIUM CHLORIDE 0.9% 1,000 ML IV PRN (08:35)
[2021-03-05] MEDS: METOPROLOL SUCCINATE XL 100 MG TABLET PO SCH (09:03)
[2021-03-05] MEDS: amLODIPine 10 MG TABLET PO SCH (09:03)
[2021-03-05] MEDS: DOCUSATE SODIUM 100 MG CAPSULE PO SCH ×2 (09:04→21:37)
[2021-03-05] MEDS: allopurinoL 100 MG TABLET PO SCH ×2 (09:04→21:37)
[2021-03-05] MEDS: INSULIN LISPRO 100 UNIT/ML SUBCUT SCH ×4 (09:04→21:38)
[2021-03-05] MEDS: PANTOPRAZOLE 40 MG TABLET PO SCH (09:04)
[2021-03-05] MEDS: ACETAMINOPHEN 325 MG TABLET PO PRN (14:11)
[2021-03-05] MEDS ORDERED: GLUCAGON 1 MG VIAL IM PRN (15:56)
[2021-03-05] MEDS: DEXTROSE 50% 25 GM/50 ML VIAL IV PRN ×3 (16:30→22:17)
[2021-03-06] MEDS: DEXTROSE 50% 25 GM/50 ML VIAL IV PRN ×4 (00:40→16:22)
[2021-03-06] MEDS: SODIUM CHLORIDE 0.9% 1,000 ML IV SCH ×2 (02:07→09:50)
[2021-03-06] MEDS: PIPERACILLIN/TAZOBACTAM 3,375 MG in SODIUM CHLORIDE 0.9% 100 ML IV SCH ×3 (02:08→18:29)
[2021-03-06] MEDS ORDERED: DEXTROSE 5% 1,000 ML IV SCH (02:30)
[2021-03-06 04:33] LABS: Basophils # 0.1 10*3/uL (0.0-0.2); Basophils % 0.3 % (0.0-0.8); Eosinophils # 0.1 10*3/uL (0.0-0.87); Eosinophils % 0.3 % (0.00-10.9); Hematocrit 25.1 VOL% (42.0-52.0); Hemoglobin 8.6 GM/DL (14.0-18.0); Immature Granulocytes % 2.8 %; Immature Granulocytes Absolute 0.92 #; Lymphocytes # 3.4 10*3/uL (1.4-4.0); Lymphocytes % 10.4 % (21.2-54.2); Mean Corpuscular HGB Conc 34.3 GM/DL (32-36); Mean Corpuscular Volume 85.7 FL (87-102); Mean Platelet Volume 8.9 FL (9.6-12.0); Monocytes % 6.9 % (1.7-12.7); Neutrophils % 79.3 % (38.7-73.9); Platelet Count 436 T/CUMM (130-400); Red Blood Count 2.93 MC/CUMM (3.8-5.5); Red Cell Distribution Width 15.9 % (9.3-17.3)
[2021-03-06 04:52] LABS: Albumin 1.1 G/DL (3.4-5.0); Bilirubin,Total 1.6 MG/DL (0.2-1.0); Calcium 7.8 MG/DL (8.5-10.1); Osmolality,Calculated 276.1 MOS/KG (273-304); Potassium 3.3 MMOL/L (3.5-5.1); Total Protein 5.7 G/DL (6.4-8.2)
[2021-03-06 05:01] LABS: Band Neutrophils 1 % (0-10); Hypochromasia Slight; Lymphocytes 12 % (20-55); Myelocytes 2 %; Platelet Estimate Increased; Segmented Neutrophils 79 % (50-85); Total Cells Counted 100
[2021-03-06] MEDS: allopurinoL 100 MG TABLET PO SCH ×2 (09:29→21:52)
[2021-03-06] MEDS: amLODIPine 10 MG TABLET PO SCH (09:29)
[2021-03-06] MEDS: DOCUSATE SODIUM 100 MG CAPSULE PO SCH ×2 (09:29→21:51)
[2021-03-06] MEDS: METOPROLOL SUCCINATE XL 100 MG TABLET PO SCH (09:29)
[2021-03-06] MEDS: PANTOPRAZOLE 40 MG TABLET PO SCH (09:29)
[2021-03-06] MEDS: DEXT 5% NACL 0.45% KCL 10 MEQ 10 MEQ/1,000 ML BAG IV SCH ×2 (09:32→18:44)
[2021-03-06] MEDS: POTASSIUM CHLORIDE RIDER 10 MEQ in PREMIX 1 EACH IV SCH ×2 (09:47→13:36)
[2021-03-06] MEDS: INSULIN LISPRO 100 UNIT/ML SUBCUT SCH ×4 (09:48→21:51)
[2021-03-06 10:09] LABS: Albumin (SPE) Rel % 26.9 %; Alpha 2 (SPE) Rel % 13.8 %; Beta (SPE) Rel % 11.5 %; Gamma (SPE) Rel % 41.8 %
[2021-03-06 10:40] LABS: Albumin (SPE) 2.1 G/DL (3.2-5.3); Alpha 1 (SPE) > 0.5 G/DL (0.1-0.4)
[2021-03-06 10:41] LABS: Alpha 2 (SPE) > 1.1 G/DL (0.4-1.0); Beta (SPE) 0.9 G/DL (0.5-1.1)
[2021-03-06 10:42] LABS: Gamma (SPE) > 3.2 G/DL (0.7-1.7)
[2021-03-06] MEDS: ACETAMINOPHEN 325 MG TABLET PO PRN (15:41)
[2021-03-06] MEDS: MEGESTROL 400 MG/10 ML UDCUP PO SCH (21:52)
[2021-03-07] MEDS: PIPERACILLIN/TAZOBACTAM 3,375 MG in SODIUM CHLORIDE 0.9% 100 ML IV SCH ×3 (01:46→17:40)
[2021-03-07] MEDS: DEXT 5% NACL 0.45% KCL 10 MEQ 10 MEQ/1,000 ML BAG IV SCH ×4 (01:48→22:30)
[2021-03-07 05:16] LABS: Basophils # 0.1 10*3/uL (0.0-0.2); Basophils % 0.3 % (0.0-0.8); Eosinophils # 0.3 10*3/uL (0.0-0.87); Eosinophils % 0.7 % (0.00-10.9); Hematocrit 27.9 VOL% (42.0-52.0); Hemoglobin 9.6 GM/DL (14.0-18.0); Immature Granulocytes % 2.6 %; Immature Granulocytes Absolute 0.91 #; Lymphocytes # 2.2 10*3/uL (1.4-4.0); Lymphocytes % 6.2 % (21.2-54.2); Mean Corpuscular HGB Conc 34.4 GM/DL (32-36); Mean Corpuscular Volume 85.8 FL (87-102); Mean Platelet Volume 8.8 FL (9.6-12.0); Monocytes % 6.7 % (1.7-12.7); Neutrophils % 83.5 % (38.7-73.9); Platelet Count 385 T/CUMM (130-400); Red Blood Count 3.25 MC/CUMM (3.8-5.5); Red Cell Distribution Width 16.4 % (9.3-17.3); White Blood Count 35.1 T/CUMM (4-12)
[2021-03-07 05:45] LABS: Band Neutrophils 2 % (0-10); Lymphocytes 6 % (20-55); Segmented Neutrophils 86 % (50-85); Total Cells Counted 100
[2021-03-07 05:46] LABS: Hypochromasia 2+; Platelet Estimate Normal
[2021-03-07 05:52] LABS: Albumin 1.2 G/DL (3.4-5.0); Calcium 8.4 MG/DL (8.5-10.1); Osmolality,Calculated 262.7 MOS/KG (273-304); Potassium 3.8 MMOL/L (3.5-5.1); Total Protein 6.7 G/DL (6.4-8.2)
[2021-03-07] MEDS: amLODIPine 10 MG TABLET PO SCH (09:05)
[2021-03-07] MEDS: DOCUSATE SODIUM 100 MG CAPSULE PO SCH ×2 (09:05→22:13)
[2021-03-07] MEDS: METOPROLOL SUCCINATE XL 100 MG TABLET PO SCH (09:05)
[2021-03-07] MEDS: allopurinoL 100 MG TABLET PO SCH ×2 (09:05→22:13)
[2021-03-07] MEDS: MEGESTROL 400 MG/10 ML UDCUP PO SCH ×2 (09:05→22:13)
[2021-03-07] MEDS: PANTOPRAZOLE 40 MG TABLET PO SCH (09:05)
[2021-03-07] MEDS: INSULIN LISPRO 100 UNIT/ML SUBCUT SCH ×4 (09:45→22:13)
[2021-03-08] MEDS: PIPERACILLIN/TAZOBACTAM 3,375 MG in SODIUM CHLORIDE 0.9% 100 ML IV SCH ×3 (01:49→18:19)
[2021-03-08 05:27] LABS: Basophils # 0.1 10*3/uL (0.0-0.2); Basophils % 0.2 % (0.0-0.8); Eosinophils # 0.2 10*3/uL (0.0-0.87); Eosinophils % 0.7 % (0.00-10.9); Hematocrit 26.2 VOL% (42.0-52.0); Hemoglobin 8.6 GM/DL (14.0-18.0); Immature Granulocytes % 2.6 %; Lymphocytes # 2.4 10*3/uL (1.4-4.0); Lymphocytes % 7.7 % (21.2-54.2); Mean Corpuscular HGB Conc 32.8 GM/DL (32-36); Mean Corpuscular Volume 88.5 FL (87-102); Mean Platelet Volume 9.3 FL (9.6-12.0); Monocytes % 7.3 % (1.7-12.7); Neutrophils % 81.5 % (38.7-73.9); Platelet Count 426 T/CUMM (130-400); Red Blood Count 2.96 MC/CUMM (3.8-5.5); Red Cell Distribution Width 16.7 % (9.3-17.3); White Blood Count 31.2 T/CUMM (4-12)
[2021-03-08 05:47] LABS: Alanine Aminotransferase < 9 U/L (16-61); Albumin 1.2 G/DL (3.4-5.0); Alkaline Phosphatase 199 U/L (45-117); Aspartate Amino Transferase 18 U/L (0-37); Blood Urea Nitrogen 22 MG/DL (7-18); Calcium 8.3 MG/DL (8.5-10.1); Carbon Dioxide 20 MMOL/L (21-32); Estimated Glom Filtration Rate 53 ML/MIN; Glucose 98 MG/DL (74-106); Osmolality,Calculated 266.5 MOS/KG (273-304); Potassium 3.7 MMOL/L (3.5-5.1); Sodium 132 MMOL/L (136-145); Total Protein 6.3 G/DL (6.4-8.2)
[2021-03-08 06:08] LABS: Lymphocytes 5 % (20-55); Segmented Neutrophils 88 % (50-85); Total Cells Counted 100
[2021-03-08 06:09] LABS: Platelet Estimate Increased
[2021-03-08] MEDS: INSULIN LISPRO 100 UNIT/ML SUBCUT SCH ×4 (08:20→22:14)
[2021-03-08] MEDS: DEXT 5% NACL 0.45% KCL 10 MEQ 10 MEQ/1,000 ML BAG IV SCH ×4 (08:20→16:04)
[2021-03-08] MEDS: allopurinoL 100 MG TABLET PO SCH ×2 (10:36→22:13)
[2021-03-08] MEDS: MEGESTROL 400 MG/10 ML UDCUP PO SCH ×2 (10:36→22:13)
[2021-03-08] MEDS: DOCUSATE SODIUM 100 MG CAPSULE PO SCH ×2 (10:36→22:13)
[2021-03-08] MEDS: amLODIPine 10 MG TABLET PO SCH (10:37)
[2021-03-08] MEDS: PANTOPRAZOLE 40 MG TABLET PO SCH (10:37)
[2021-03-08] MEDS: METOPROLOL SUCCINATE XL 100 MG TABLET PO SCH (10:37)
[2021-03-08] MEDS: APIXABAN 2.5 MG TABLET PO SCH ×2 (14:47→22:13)
[2021-03-09] MEDS: PIPERACILLIN/TAZOBACTAM 3,375 MG in SODIUM CHLORIDE 0.9% 100 ML IV SCH ×3 (00:39→17:02)
[2021-03-09 06:28] LABS: Basophils # 0.1 10*3/uL (0.0-0.2); Basophils % 0.4 % (0.0-0.8); Eosinophils # 0.1 10*3/uL (0.0-0.87); Eosinophils % 0.5 % (0.00-10.9); Hematocrit 27.6 VOL% (42.0-52.0); Hemoglobin 9.3 GM/DL (14.0-18.0); Immature Granulocytes % 2.9 %; Immature Granulocytes Absolute 0.72 #; Lymphocytes # 2.1 10*3/uL (1.4-4.0); Lymphocytes % 8.2 % (21.2-54.2); Mean Corpuscular HGB Conc 33.7 GM/DL (32-36); Mean Corpuscular Volume 87.6 FL (87-102); Mean Platelet Volume 9.3 FL (9.6-12.0); Monocytes % 7.9 % (1.7-12.7); Neutrophils % 80.1 % (38.7-73.9); Platelet Count 409 T/CUMM (130-400); Red Blood Count 3.15 MC/CUMM (3.8-5.5); Red Cell Distribution Width 16.8 % (9.3-17.3); White Blood Count 25.1 T/CUMM (4-12)
[2021-03-09 06:41] LABS: Calcium 8.4 MG/DL (8.5-10.1); Osmolality,Calculated 274.2 MOS/KG (273-304); Potassium 3.9 MMOL/L (3.5-5.1)
[2021-03-09 07:18] LABS: Band Neutrophils 2 % (0-10); Lymphocytes 8 % (20-55); Platelet Estimate Increased; Segmented Neutrophils 83 % (50-85); Total Cells Counted 100
[2021-03-09] MEDS: INSULIN LISPRO 100 UNIT/ML SUBCUT SCH ×4 (09:25→20:28)
[2021-03-09] MEDS: amLODIPine 10 MG TABLET PO SCH (09:26)
[2021-03-09] MEDS: APIXABAN 2.5 MG TABLET PO SCH ×2 (09:27→20:26)
[2021-03-09] MEDS: MEGESTROL 400 MG/10 ML UDCUP PO SCH ×2 (09:27→20:26)
[2021-03-09] MEDS: allopurinoL 100 MG TABLET PO SCH ×2 (09:27→20:26)
[2021-03-09] MEDS: DOCUSATE SODIUM 100 MG CAPSULE PO SCH ×2 (09:27→20:26)
[2021-03-09] MEDS: PANTOPRAZOLE 40 MG TABLET PO SCH (09:27)
[2021-03-09] MEDS: METOPROLOL SUCCINATE XL 100 MG TABLET PO SCH (09:29)
[2021-03-09] MEDS: DEXT 5% NACL 0.45% KCL 10 MEQ 10 MEQ/1,000 ML BAG IV SCH ×3 (09:29→17:02)
[2021-03-09 11:29] LABS: Insulin Level Total 3.7 mcIU/mL (2.6 - 24.9)
[2021-03-10] MEDS: PIPERACILLIN/TAZOBACTAM 3,375 MG in SODIUM CHLORIDE 0.9% 100 ML IV SCH ×3 (01:16→16:08)
[2021-03-10] MEDS: DEXT 5% NACL 0.45% KCL 10 MEQ 10 MEQ/1,000 ML BAG IV SCH ×4 (01:20→21:13)
[2021-03-10 06:04] LABS: Basophils # 0.1 10*3/uL (0.0-0.2); Basophils % 0.3 % (0.0-0.8); Eosinophils # 0.1 10*3/uL (0.0-0.87); Eosinophils % 0.5 % (0.00-10.9); Hematocrit 28.4 VOL% (42.0-52.0); Hemoglobin 9.1 GM/DL (14.0-18.0); Immature Granulocytes % 2.7 %; Immature Granulocytes Absolute 0.68 #; Lymphocytes # 2.2 10*3/uL (1.4-4.0); Lymphocytes % 8.7 % (21.2-54.2); Mean Platelet Volume 9.5 FL (9.6-12.0); Monocytes % 8.4 % (1.7-12.7); Neutrophils % 79.4 % (38.7-73.9); Platelet Count 477 T/CUMM (130-400); Red Blood Count 3.19 MC/CUMM (3.8-5.5); White Blood Count 25.3 T/CUMM (4-12)
[2021-03-10 06:36] LABS: Anisocytosis 1+; Band Neutrophils 6 % (0-10); Burr Cells 1+; Lymphocytes 10 % (20-55); Macrocytosis 1+; Platelet Estimate Normal; Segmented Neutrophils 72 % (50-85); Smudge Cells Few; Total Cells Counted 100
[2021-03-10 06:37] LABS: Basophilic Stippling Slight; Target Cells Slight
[2021-03-10 06:40] LABS: Calcium 8.5 MG/DL (8.5-10.1); Osmolality,Calculated 269.5 MOS/KG (273-304); Potassium 4.7 MMOL/L (3.5-5.1)
[2021-03-10] MEDS: amLODIPine 10 MG TABLET PO SCH (08:14)
[2021-03-10] MEDS: MEGESTROL 400 MG/10 ML UDCUP PO SCH ×2 (08:14→21:06)
[2021-03-10] MEDS: DOCUSATE SODIUM 100 MG CAPSULE PO SCH ×2 (08:15→21:06)
[2021-03-10] MEDS: INSULIN LISPRO 100 UNIT/ML SUBCUT SCH ×4 (08:15→21:06)
[2021-03-10] MEDS: allopurinoL 100 MG TABLET PO SCH ×2 (08:15→21:06)
[2021-03-10] MEDS: METOPROLOL SUCCINATE XL 100 MG TABLET PO SCH (08:15)
[2021-03-10] MEDS: PANTOPRAZOLE 40 MG TABLET PO SCH (08:15)
[2021-03-10] MEDS: APIXABAN 2.5 MG TABLET PO SCH ×2 (08:15→21:06)
[2021-03-11] MEDS: PIPERACILLIN/TAZOBACTAM 3,375 MG in SODIUM CHLORIDE 0.9% 100 ML IV SCH ×3 (00:40→18:18)
[2021-03-11] MEDS: DEXT 5% NACL 0.45% KCL 10 MEQ 10 MEQ/1,000 ML BAG IV SCH ×3 (00:42→16:49)
[2021-03-11] MEDS: INSULIN LISPRO 100 UNIT/ML SUBCUT SCH ×4 (07:36→21:02)
[2021-03-11] MEDS: DOCUSATE SODIUM 100 MG CAPSULE PO SCH ×2 (08:22→21:02)
[2021-03-11] MEDS: METOPROLOL SUCCINATE XL 100 MG TABLET PO SCH (08:23)
[2021-03-11] MEDS: APIXABAN 2.5 MG TABLET PO SCH ×2 (08:23→21:02)
[2021-03-11] MEDS: MEGESTROL 400 MG/10 ML UDCUP PO SCH ×2 (08:23→21:02)
[2021-03-11] MEDS: amLODIPine 10 MG TABLET PO SCH (08:23)
[2021-03-11] MEDS: allopurinoL 100 MG TABLET PO SCH ×2 (08:23→21:02)
[2021-03-11] MEDS: PANTOPRAZOLE 40 MG TABLET PO SCH (08:23)
[2021-03-11 09:14] LABS: Basophils # 0.1 10*3/uL (0.0-0.2); Basophils % 0.3 % (0.0-0.8); Eosinophils # 0.1 10*3/uL (0.0-0.87); Eosinophils % 0.6 % (0.00-10.9); Hematocrit 33.6 VOL% (42.0-52.0); Hemoglobin 10.7 GM/DL (14.0-18.0); Immature Granulocytes % 2.8 %; Immature Granulocytes Absolute 0.54 #; Lymphocytes # 1.9 10*3/uL (1.4-4.0); Mean Corpuscular HGB Conc 31.8 GM/DL (32-36); Mean Corpuscular Volume 89.6 FL (87-102); Mean Platelet Volume 9.5 FL (9.6-12.0); Monocytes % 7.6 % (1.7-12.7); Neutrophils % 78.7 % (38.7-73.9); Platelet Count 535 T/CUMM (130-400); Red Blood Count 3.75 MC/CUMM (3.8-5.5); Red Cell Distribution Width 17.1 % (9.3-17.3); White Blood Count 19.3 T/CUMM (4-12)
[2021-03-11 09:34] LABS: Band Neutrophils 4 % (0-10); Eosinophils 1 % (0-10); Lymphocytes 11 % (20-55); Platelet Estimate Increased; Segmented Neutrophils 74 % (50-85); Total Cells Counted 100
[2021-03-11 09:35] LABS: Burr Cells Few; Macrocytosis Slight
[2021-03-11 10:00] LABS: Alanine Aminotransferase < 9 U/L (16-61); Albumin 1.3 G/DL (3.4-5.0); Alkaline Phosphatase 212 U/L (45-117); Aspartate Amino Transferase 21 U/L (0-37); Blood Urea Nitrogen 14 MG/DL (7-18); Calcium 8.7 MG/DL (8.5-10.1); Carbon Dioxide 16 MMOL/L (21-32); Estimated Glom Filtration Rate 69 ML/MIN; Glucose 141 MG/DL (74-106); Osmolality,Calculated 262.8 MOS/KG (273-304); Potassium 4.4 MMOL/L (3.5-5.1); Sodium 130 MMOL/L (136-145); Total Protein 7.6 G/DL (6.4-8.2)
[2021-03-12] MEDS: PIPERACILLIN/TAZOBACTAM 3,375 MG in SODIUM CHLORIDE 0.9% 100 ML IV SCH (02:31)
[2021-03-12] MEDS: DEXT 5% NACL 0.45% KCL 10 MEQ 10 MEQ/1,000 ML BAG IV SCH ×4 (05:55→22:07)
[2021-03-12 06:25] LABS: Basophils # 0.1 10*3/uL (0.0-0.2); Basophils % 0.6 % (0.0-0.8); Eosinophils # 0.2 10*3/uL (0.0-0.87); Eosinophils % 0.9 % (0.00-10.9); Hematocrit 29.8 VOL% (42.0-52.0); Hemoglobin 9.4 GM/DL (14.0-18.0); Immature Granulocytes % 3.4 %; Immature Granulocytes Absolute 0.54 #; Lymphocytes # 1.8 10*3/uL (1.4-4.0); Lymphocytes % 11.4 % (21.2-54.2); Mean Corpuscular HGB Conc 31.5 GM/DL (32-36); Mean Platelet Volume 9.5 FL (9.6-12.0); Monocytes % 8.6 % (1.7-12.7); Neutrophils % 75.1 % (38.7-73.9); Platelet Count 537 T/CUMM (130-400); Red Blood Count 3.24 MC/CUMM (3.8-5.5); Red Cell Distribution Width 17.4 % (9.3-17.3); White Blood Count 16.1 T/CUMM (4-12)
[2021-03-12 06:32] LABS: Hypochromasia 1+; Lymphocytes 15 % (20-55); Microcytosis 1+; Platelet Estimate Increased; Segmented Neutrophils 79 % (50-85); Total Cells Counted 100
[2021-03-12 06:43] LABS: Albumin 1.2 G/DL (3.4-5.0); Bilirubin,Total 0.8 MG/DL (0.2-1.0); Calcium 8.7 MG/DL (8.5-10.1); Osmolality,Calculated 274.1 MOS/KG (273-304); Potassium 4.4 MMOL/L (3.5-5.1); Total Protein 6.9 G/DL (6.4-8.2)
[2021-03-12] MEDS: DOCUSATE SODIUM 100 MG CAPSULE PO SCH ×2 (09:27→20:27)
[2021-03-12] MEDS: PANTOPRAZOLE 40 MG TABLET PO SCH (09:27)
[2021-03-12] MEDS: INSULIN LISPRO 100 UNIT/ML SUBCUT SCH ×4 (09:27→20:27)
[2021-03-12] MEDS: APIXABAN 2.5 MG TABLET PO SCH ×2 (09:27→20:26)
[2021-03-12] MEDS: METOPROLOL SUCCINATE XL 100 MG TABLET PO SCH (09:28)
[2021-03-12] MEDS: allopurinoL 100 MG TABLET PO SCH ×2 (09:28→20:26)
[2021-03-12] MEDS: amLODIPine 10 MG TABLET PO SCH (09:28)
[2021-03-12] MEDS: MEGESTROL 400 MG/10 ML UDCUP PO SCH ×2 (09:28→20:29)
[2021-03-13] MEDS: DEXT 5% NACL 0.45% KCL 10 MEQ 10 MEQ/1,000 ML BAG IV SCH ×2 (06:01→18:46)
[2021-03-13 07:26] LABS: Basophils # 0.1 10*3/uL (0.0-0.2); Basophils % 0.5 % (0.0-0.8); Eosinophils # 0.1 10*3/uL (0.0-0.87); Eosinophils % 0.7 % (0.00-10.9); Hematocrit 26.6 VOL% (42.0-52.0); Hemoglobin 8.7 GM/DL (14.0-18.0); Immature Granulocytes % 3.2 %; Immature Granulocytes Absolute 0.55 #; Lymphocytes # 2.5 10*3/uL (1.4-4.0); Lymphocytes % 14.4 % (21.2-54.2); Mean Corpuscular HGB Conc 32.7 GM/DL (32-36); Mean Corpuscular Volume 88.7 FL (87-102); Mean Platelet Volume 9.5 FL (9.6-12.0); Monocytes % 8.4 % (1.7-12.7); Neutrophils % 72.8 % (38.7-73.9); Platelet Count 606 T/CUMM (130-400); Red Cell Distribution Width 17.4 % (9.3-17.3); White Blood Count 17.4 T/CUMM (4-12)
[2021-03-13 07:47] LABS: Albumin 1.2 G/DL (3.4-5.0); Calcium 8.4 MG/DL (8.5-10.1); Osmolality,Calculated 273.8 MOS/KG (273-304); Potassium 4.2 MMOL/L (3.5-5.1); Total Protein 6.9 G/DL (6.4-8.2)
[2021-03-13] MEDS: INSULIN LISPRO 100 UNIT/ML SUBCUT SCH ×4 (08:19→21:18)
[2021-03-13 08:20] LABS: Eosinophils 1 % (0-10); Lymphocytes 7 % (20-55); Segmented Neutrophils 81 % (50-85); Total Cells Counted 100
[2021-03-13] MEDS: allopurinoL 100 MG TABLET PO SCH ×2 (08:20→21:18)
[2021-03-13] MEDS: APIXABAN 2.5 MG TABLET PO SCH ×2 (08:20→21:18)
[2021-03-13] MEDS: PANTOPRAZOLE 40 MG TABLET PO SCH (08:20)
[2021-03-13] MEDS: MEGESTROL 400 MG/10 ML UDCUP PO SCH ×2 (08:20→21:17)
[2021-03-13] MEDS: METOPROLOL SUCCINATE XL 100 MG TABLET PO SCH (08:20)
[2021-03-13] MEDS: DOCUSATE SODIUM 100 MG CAPSULE PO SCH ×2 (08:20→21:18)
[2021-03-13] MEDS: amLODIPine 10 MG TABLET PO SCH (08:20)
[2021-03-13 08:21] LABS: Hypochromasia 1+; Microcytosis 1+
[2021-03-14 07:25] LABS: Basophils # 0.1 10*3/uL (0.0-0.2); Basophils % 0.4 % (0.0-0.8); Eosinophils # 0.1 10*3/uL (0.0-0.87); Eosinophils % 0.5 % (0.00-10.9); Hematocrit 28.2 VOL% (42.0-52.0); Hemoglobin 9.1 GM/DL (14.0-18.0); Immature Granulocytes % 3.3 %; Immature Granulocytes Absolute 0.54 #; Lymphocytes % 12.3 % (21.2-54.2); Mean Corpuscular HGB Conc 32.3 GM/DL (32-36); Mean Platelet Volume 9.3 FL (9.6-12.0); Monocytes % 7.5 % (1.7-12.7); Platelet Count 592 T/CUMM (130-400); Red Blood Count 3.17 MC/CUMM (3.8-5.5); Red Cell Distribution Width 17.2 % (9.3-17.3); White Blood Count 16.5 T/CUMM (4-12)
[2021-03-14 07:54] LABS: Lymphocytes 10 % (20-55); Segmented Neutrophils 81 % (50-85); Total Cells Counted 100
[2021-03-14 08:03] LABS: Hypochromasia 1+; Microcytosis 1+
[2021-03-14] MEDS: DEXT 5% NACL 0.45% KCL 10 MEQ 10 MEQ/1,000 ML BAG IV SCH (08:20)
[2021-03-14] MEDS: PANTOPRAZOLE 40 MG TABLET PO SCH (08:21)
[2021-03-14] MEDS: MEGESTROL 400 MG/10 ML UDCUP PO SCH (08:21)
[2021-03-14] MEDS: DOCUSATE SODIUM 100 MG CAPSULE PO SCH (08:21)
[2021-03-14] MEDS: METOPROLOL SUCCINATE XL 100 MG TABLET PO SCH (08:22)
[2021-03-14] MEDS: INSULIN LISPRO 100 UNIT/ML SUBCUT SCH ×2 (08:22→13:32)
[2021-03-14] MEDS: allopurinoL 100 MG TABLET PO SCH (08:22)
[2021-03-14] MEDS: APIXABAN 2.5 MG TABLET PO SCH (08:22)
[2021-03-14] MEDS: amLODIPine 10 MG TABLET PO SCH (08:22)
[2021-03-14] MEDS ORDERED: TUBERCULIN SKIN TEST 0.1 ML SYRINGE INTRADERM ONE (09:00)
[2021-03-14 11:54] VITALS: BP 140/63
== END 2021-03-14 15:41 | DRG 375 ==
LOC: N.ED 11:33 → N.EDINP 15:05 → N.5E 16:44
PROVIDERS: ADMIT Family Medicine; ATTEND Family Medicine